=== PATIENT | male | born 1995 | race Caucasian/White ===

== ENCOUNTER 2018-09-15 10:45 | Emergency (ER) | payer BC ==
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
[2018-09-15 13:19] VITALS: BP 118/72
== END 2018-09-15 13:25 | disposition home or self-care (01) ==
DX: S06.360A Traumatic hemorrhage of cerebrum, unspecified, without loss of consciousness, initial encounter (principal); V00.311A Fall from snowboard, initial encounter; Y93.23 Activity, snow (alpine) (downhill) skiing, snowboarding, sledding, tobogganing and snow tubing